=== PATIENT | female | born 1965 | race Caucasian/White ===

== ENCOUNTER → 2023-09-09 10:18 | Outpatient (REF) | payer BC, SELFPAY ==
[2023-09-09 11:34] LABS: % Basophils 0.6 % (0-2); % Eosinophils 2.1 % (0-6); % Immature Granulocytes 0.2 % (0-0.5); % Lymphocytes 20.5 % (20.5-51.1); % Monocytes 7.2 % (1.7-9.3); % Neutrophils 69.4 % (42.2-75.2); Absolute Eosinophils 0.1 10^3/uL (0-0.7); Absolute Monocytes 0.4 10^3/uL (0.1-0.6); Absolute Neutrophils 3.4 10^3/uL (1.4-6.5); Hematocrit 42.6 % (37.0-47.0); Hemoglobin 15.4 g/dL (12.0-16.0); Mean Corp Hgb Conc. 36.2 g/dL (33.0-37.0); Mean Corpuscular Hgb 30.7 pg (27.0-31.0); Mean Platelet Volume 10.4 fL (7.4-10.4); Nucleated Red Blood Cells % 0 %; Platelet Count 201 10^3/uL (130-400); Red Blood Cell Count 5.01 10^6/uL (4.20-5.40); Red Cell Dist. Width 12.9 % (11.5-14.5); Urine Albumin Negative (Neg - Trace); Urine Bilirubin Negative (Negative); Urine Character Clear (Clear); Urine Color Yellow; Urine Glucose Negative (Negative); Urine Ketone Negative (Negative); Urine Leukocyte Negative (Negative); Urine Nitrite Negative (Negative); Urine Occult Blood Negative (Negative); Urine Urobilinogen Negative (Neg - 1+); White Blood Cell Count 4.8 10^3/uL (4.8-10.8)
[2023-09-09 11:45] LABS: ALT (SGPT) 30 U/L (0-35); AST (SGOT) 27 U/L (14-36); Albumin 4.7 g/dl (3.5-5.0); Alkaline Phosphatase 71 U/L (38-126); Blood Urea Nitrogen 14 mg/dl (7-17); Calcium 9.4 mg/dl (8.4-10.2); Carbon Dioxide 27 mmol/L (22-30); Chloride 102 mmol/L (98-107); Glucose 106 mg/dl (70-99); HDL Cholesterol 77 mg/dl; LDL Cholesterol, Calculated 84 mg/dl; Potassium 3.9 mmol/L (3.5-5.1); Sodium 138 mmol/L (135-145); Total Cholesterol 183 mg/dl (50-199); Total Protein 7.6 g/dl (6.3-8.2); Triglyceride 112 mg/dl (10-149); Very Low Density Lipoprotein 22 mg/dl (0-30); eGFR > 60.00
[2023-09-09 11:48] LABS: C-Reactive Protein < 5.00 mg/L (0.0-10.00)
[2023-09-09 11:52] LABS: Erythrocyte Sed Rate 7 mm/hour (0-20)
[2023-09-09 12:09] LABS: Urine Protein < 5 mg/dl
[2023-09-09 12:13] LABS: Microalbumin, Random Urine 0.9 mg/dl (0.6-1.7); Microalbumin/creatinine Ratio 4.6 mg/g
[2023-09-09 12:20] LABS: TSH Reflex To Free T4 0.57 uIU/ml (0.47-4.68)
[2023-09-09 12:50] LABS: Glycohemoglobin (HgbA1c) 5.8 % (4.0-5.6)
[2023-09-09 12:56] LABS: Folate > 20.0 ng/ml (2.76-20); Vitamin B12 764 pg/ml (239-931)
[2023-09-11 01:14] LABS: Complement C3 124 mg/dl (88-165)
[2023-09-11 02:08] LABS: ANA, IgG Reflex to HEp-2 None Detected (None Detected)
[2023-09-11 02:24] LABS: ds-DNA Ab, IgG Reflex To Titer 1 IU (0-24)
[2023-09-11 03:11] LABS: Beta-2-Glycoprotein I Ab. IgA <10 SAU (<=20)
[2023-09-11 08:45] LABS: Cardiolipin IgA Antibody <10 APL (<=11); Cardiolipin IgM Antibody <10 MPL (<=12); Cardiolipin Igg Antibody <10 GPL (<=14)
[2023-09-11 11:59] LABS: Smith/RNP (ENA), IgG 2 Units (0-19)
[2023-09-12 09:07] LABS: SSA 52 (Ro)(ENA) Ab, IgG 3 AU/mL (0-40); SSA 60 (Ro)(ENA) Ab, IgG 2 AU/mL (0-40); SSB (La)(ENA) Ab, IgG 0 AU/mL (0-40); Smith (ENA) Antibody, IgG 2 AU/mL (0-40)
[2023-09-12 17:06] LABS: Albumin 4.59 g/dL (3.75-5.01); Alpha 1 Globulin 0.26 g/dL (0.19-0.46); Alpha 2 Globulin 0.59 g/dL (0.48-1.05); Free Kappa Light Chains,Quant 18.99 mg/L (3.30-19.40); Free Lambda Light Chains,Quant 41.22 mg/L (5.71-26.30); IgA 862 mg/dL (68-408); IgG 466 mg/dL (768-1632); IgM 46 mg/dL (35-263); Immunofixation Electrophoresis IFE Done; Kappa/Lambda Fr Light Ratio 0.46 (0.26-1.65); Monoclonal Protein 0.67 g/dL (<=0.00); Total Protein-Electrophoresis 7.4 g/dL (6.3-8.2)
== END ==
LOC: REG 10:18
PROVIDERS: ATTENDING PHYSICIAN Physician Assistant; FAMILY PHYSICIAN Family Medicine; REFERRING PHYSICIAN Internal Medicine
DX: D68.62 Lupus anticoagulant syndrome (principal); M25.50 Pain in unspecified joint; M32.9 Systemic lupus erythematosus, unspecified; M35.01 Sjogren syndrome with keratoconjunctivitis; R53.82 Chronic fatigue, unspecified; E11.9 Type 2 diabetes mellitus without complications; E78.00 Pure hypercholesterolemia, unspecified; F32.0 Major depressive disorder, single episode, mild; F41.1 Generalized anxiety disorder; J45.20 Mild intermittent asthma, uncomplicated; D47.2 Monoclonal gammopathy
CPT/HCPCS: 36415; 80053; 80061; 81003; 82043; 82570; 82607; 82746; 82784; 83036; 83521; 84155; 84156; 84165; 84443; 85025; 85652; 86038; 86140; 86146; 86147; 86160; 86225; 86235; 86334

== ENCOUNTER → 2023-12-19 16:35 | Outpatient (REF) | payer BC, SELFPAY ==
[2023-12-19 18:00] LABS: Erythrocyte Sed Rate 10 mm/hour (0-20)
[2023-12-19 18:07] LABS: C-Reactive Protein < 5.00 mg/L (0.0-10.00)
[2023-12-21 15:50] LABS: Lyme Antibody Screen, EIA Negative (Negative)
== END ==
LOC: REG 16:35
PROVIDERS: ATTENDING PHYSICIAN Nurse Practitioner Adult Health
DX: M79.10 Myalgia, unspecified site (principal); M35.1 Other overlap syndromes
CPT/HCPCS: 36415; 85652; 86140; 86618

== ENCOUNTER → 2024-01-19 15:49 | Outpatient (REF) | payer BC, SELFPAY ==
[2024-01-19 17:10] LABS: Urine Albumin Negative (Neg - Trace); Urine Bilirubin Negative (Negative); Urine Character Clear (Clear); Urine Color Yellow; Urine Glucose Negative (Negative); Urine Ketone Negative (Negative); Urine Leukocyte 2+ (Negative); Urine Nitrite Negative (Negative); Urine Occult Blood Negative (Negative); Urine Urobilinogen Negative (Neg - 1+)
[2024-01-19 17:33] LABS: Urine Bacteria Moderate (Negative); Urine Red Blood Cell 0-2 /HPF (0-2); Urine White Cell 80-90 /HPF (0-5)
== END ==
LOC: REG 15:49
PROVIDERS: ATTENDING PHYSICIAN Family Medicine
DX: R39.9 Unspecified symptoms and signs involving the genitourinary system (principal); R30.0 Dysuria
CPT/HCPCS: 81003; 81015; 87086; 87088; 87186

== ENCOUNTER → 2024-02-01 07:18 | Outpatient (REF) | payer BC, SELFPAY ==
[2024-02-01 08:49] LABS: ALT (SGPT) 20 U/L (0-35); AST (SGOT) 22 U/L (14-36); Albumin 4.3 g/dl (3.5-5.0); Alkaline Phosphatase 68 U/L (38-126); Blood Urea Nitrogen 14 mg/dl (7-17); Calcium 9.5 mg/dl (8.4-10.2); Carbon Dioxide 27 mmol/L (22-30); Chloride 105 mmol/L (98-107); Glucose 127 mg/dl (70-99); HDL Cholesterol 61 mg/dl; LDL Cholesterol, Calculated 121 mg/dl; Potassium 3.9 mmol/L (3.5-5.1); Sodium 139 mmol/L (135-145); Total Bilirubin 0.7 mg/dl (0.2-1.3); Total Cholesterol 208 mg/dl (50-199); Total Protein 6.9 g/dl (6.3-8.2); Triglyceride 131 mg/dl (10-149); Very Low Density Lipoprotein 26 mg/dl (0-30); eGFR > 60.00
[2024-02-01 08:54] LABS: Urine Albumin Negative (Neg - Trace); Urine Bilirubin Negative (Negative); Urine Character Clear (Clear); Urine Color Yellow; Urine Glucose Negative (Negative); Urine Ketone Negative (Negative); Urine Leukocyte Negative (Negative); Urine Nitrite Negative (Negative); Urine Occult Blood Negative (Negative); Urine Specific Gravity 1.015 (<1.030); Urine Urobilinogen Negative (Neg - 1+)
[2024-02-01 09:24] LABS: Glycohemoglobin (HgbA1c) 5.4 % (4.0-5.6)
== END ==
LOC: REG 07:18
PROVIDERS: ATTENDING PHYSICIAN Family Medicine
DX: E11.9 Type 2 diabetes mellitus without complications (principal); E78.00 Pure hypercholesterolemia, unspecified; R39.9 Unspecified symptoms and signs involving the genitourinary system
CPT/HCPCS: 36415; 80053; 80061; 81003; 83036; 87086

== ENCOUNTER → 2024-02-09 16:45 | Outpatient (REF) | payer BC, SELFPAY ==
[2024-02-09 17:52] LABS: % Basophils 0.8 % (0-2); % Eosinophils 3.7 % (0-6); % Immature Granulocytes 0.3 % (0-0.5); % Lymphocytes 20.3 % (20.5-51.1); % Neutrophils 67.9 % (42.2-75.2); Absolute Basophils 0.1 10^3/uL (0-0.2); Absolute Eosinophils 0.2 10^3/uL (0-0.7); Absolute Lymphocytes 1.3 10^3/uL (1.2-3.4); Absolute Monocytes 0.5 10^3/uL (0.1-0.6); Absolute Neutrophils 4.5 10^3/uL (1.4-6.5); Hematocrit 35.9 % (37.0-47.0); Hemoglobin 13.1 g/dL (12.0-16.0); Mean Corp Hgb Conc. 36.5 g/dL (33.0-37.0); Mean Corpuscular Volume 85.1 fL (81.0-99.0); Mean Platelet Volume 10.7 fL (7.4-10.4); Nucleated Red Blood Cells % 0 %; Platelet Count 213 10^3/uL (130-400); Red Blood Cell Count 4.22 10^6/uL (4.20-5.40); Red Cell Dist. Width 13.5 % (11.5-14.5); White Blood Cell Count 6.6 10^3/uL (4.8-10.8)
== END ==
LOC: REG 16:45
PROVIDERS: ATTENDING PHYSICIAN Family Medicine
DX: E11.9 Type 2 diabetes mellitus without complications (principal)
CPT/HCPCS: 36415; 82985; 85025

== ENCOUNTER → 2024-05-01 10:30 | Outpatient (REF) | payer BC, SELFPAY ==
[2024-05-01 12:27] LABS: % Basophils 0.6 % (0-2); % Eosinophils 2.8 % (0-6); % Immature Granulocytes 0.7 % (0-0.5); % Monocytes 6.7 % (1.7-9.3); % Neutrophils 69.2 % (42.2-75.2); Absolute Eosinophils 0.2 10^3/uL (0-0.7); Absolute Lymphocytes 1.1 10^3/uL (1.2-3.4); Absolute Monocytes 0.4 10^3/uL (0.1-0.6); Absolute Neutrophils 3.7 10^3/uL (1.4-6.5); Hematocrit 40.9 % (37.0-47.0); Hemoglobin 14.5 g/dL (12.0-16.0); Mean Corp Hgb Conc. 35.5 g/dL (33.0-37.0); Mean Corpuscular Hgb 30.1 pg (27.0-31.0); Mean Corpuscular Volume 84.9 fL (81.0-99.0); Mean Platelet Volume 10.7 fL (7.4-10.4); Nucleated Red Blood Cells % 0 %; Platelet Count 193 10^3/uL (130-400); Red Blood Cell Count 4.82 10^6/uL (4.20-5.40); Red Cell Dist. Width 13.2 % (11.5-14.5); White Blood Cell Count 5.4 10^3/uL (4.8-10.8)
[2024-05-01 12:47] LABS: ALT (SGPT) 31 U/L (0-35); AST (SGOT) 24 U/L (14-36); Albumin 4.6 g/dl (3.5-5.0); Alkaline Phosphatase 53 U/L (38-126); Blood Urea Nitrogen 13 mg/dl (7-17); Calcium 9.7 mg/dl (8.4-10.2); Carbon Dioxide 25 mmol/L (22-30); Chloride 103 mmol/L (98-107); Glucose 120 mg/dl (70-99); Potassium 4.2 mmol/L (3.5-5.1); Sodium 141 mmol/L (135-145); Total Bilirubin 0.5 mg/dl (0.2-1.3); Total Protein 7.1 g/dl (6.3-8.2); eGFR > 60.00
== END ==
LOC: REG 10:30
PROVIDERS: ATTENDING PHYSICIAN Internal Medicine Hematology & Oncology; FAMILY PHYSICIAN Family Medicine; REFERRING PHYSICIAN Internal Medicine
DX: C85.98 Non-Hodgkin lymphoma, unspecified, lymph nodes of multiple sites (principal); L74.9 Eccrine sweat disorder, unspecified; D05.81 Other specified type of carcinoma in situ of right breast; D47.2 Monoclonal gammopathy
CPT/HCPCS: 36415; 80053; 82784; 83521; 84155; 84165; 85025; 86334

== ENCOUNTER → 2024-12-27 15:48 | Outpatient (REF) | payer OTHER, SELFPAY | LOC: RAD 15:48 | PROVIDERS: ATTENDING PHYSICIAN Internal Medicine Cardiovascular Disease; FAMILY PHYSICIAN Family Medicine | DX: R10.31 Right lower quadrant pain (principal) | CPT/HCPCS: 74177; Q9967 ==

== ENCOUNTER → 2025-05-19 17:21 | Outpatient (REF) | payer OTHER, SELFPAY | LOC: MRI 3T 17:21 | PROVIDERS: ATTENDING PHYSICIAN Physician Assistant Surgical; FAMILY PHYSICIAN Family Medicine; OTHER PHYSICIAN Colon & Rectal Surgery | DX: M54.2 Cervicalgia (principal); M54.6 Pain in thoracic spine; G95.9 Disease of spinal cord, unspecified; M47.12 Other spondylosis with myelopathy, cervical region | CPT/HCPCS: 72141; 72146; 72148 ==